=== PATIENT | female | born 1930 | race Caucasian/White ===

== ENCOUNTER → 2016-07-19 | Outpatient (CLI) | payer MEDICARE, OTHER ==
[~2016-07-19] MED LIST: ASA CHILDREN'S81 MG PO; ATIVAN-DPS0.5 MG PO; COZAAR DPS50 MG PO; CULTURELLE1 CAP PO; OMNICEF DPS300 MG PO; PEPCID20 MG PO; PRISTIQ ER100 MG PO; VANCOCIN250 MG PO
== END | disposition home or self-care (01) ==
LOC: RAD.S 07-13 15:00
DX: M79.661 Pain in right lower leg (principal); M79.89 Other specified soft tissue disorders; I73.9 Peripheral vascular disease, unspecified; M71.21 Synovial cyst of popliteal space [Baker], right knee